=== PATIENT | female | born 1975 | race Caucasian/White ===

== ENCOUNTER 2020-01-12 04:45 | Emergency (ER) | payer OTHER ==
[2020-01-12] MEDS ORDERED: HYDROCODONE/APAP 5/325 MG TAB ONE (05:31)
--- NOTE | 2020-01-12 06:13 | ER ---
Nurse's Notes [facility] Name: Areli Morrison Age: 44 yrs Sex: Female : 1975 Arrival Date: 01/12/2020 Time: 04:48 Bed 18 Private MD: Diagnosis: Superficial injury of head;Sprain of joints and ligaments of other parts of neck Presentation: 01/11 05:01 Chief complaint: Patient states: Fell down 3 steps 1 hour ago. Denies LOC. Reports pain ss to R side of head, neck, R elbow and R knee. C collar placed in triage. Care prior to arrival: None. Mechanism of Injury: Fall down 3 steps. Trauma event details: Injury occurred in the [facility], Injury occurred: at home. Injury occurred: January 12, 2020 Injury occurred at: 04:00. 05:01 Acuity: PETER 4 ss 05:01 Method Of Arrival: Ambulatory ss 05:55 Coronavirus screen: Proceed with normal triage. Ebola Screen: No symptoms or risks lp1 identified at this time. Initial Sepsis Screen: Does the patient meet any 2 criteria? No. Patient's initial sepsis screen is negative. Does the patient have a suspected source of infection? No. Patient's initial sepsis screen is negative. Risk Assessment: Do you want to hurt yourself or someone else? Patient reports no desire to harm self or others. Onset of symptoms was January 12, 2020 at 04:00. Trauma Activation: Not Applicable Physician: ED Physician; Name: ; Notified At: ; Arrived At: Physician: General Surgeon; Name: ; Notified At: ; Arrived At: Physician: Radiology; Name: ; Notified At: ; Arrived At: Physician: Respiratory; Name: ; Notified At: ; Arrived At: Physician: Lab; Name: ; Notified At: ; Arrived At: Historical: - Allergies: 05:04 No Known Allergies; ss - Immunization history:: Adult Immunizations up to date. - Social history:: Smoking status: Patient denies any tobacco usage or history of. - Family history:: not pertinent. - Hospitalizations: : No recent hospitalization is reported. Screenin:06 Abuse screen: Denies threats or abuse. Denies injuries from another. Nutritional ss screening: No deficits noted. Tuberculosis screening: Never had TB. 05:30 Fall Risk None identified. lp1 Assessment: 05:04 General: Appears in no apparent distress. Behavior is appropriate for age. Pain: lp1 Complains of pain in forehead and back of neck Pain currently is 7 out of 10 on a pain scale. Quality of pain is described as aching. Neuro: Level of Consciousness is awake, alert, obeys commands, Oriented to person, place, time, situation. Cardiovascular: Patient's skin is warm and dry. Respiratory: Respiratory effort is even, unlabored. GI: No signs and/or symptoms were reported involving the gastrointestinal system. : No signs and/or symptoms were reported regarding the genitourinary system. EENT: No signs and/or symptoms were reported regarding the EENT system. Derm: Skin is pink, warm \T\ dry. Musculoskeletal: Swelling present in forehead. 05:30 Reassessment: Patient returned from CT; complaint of pain to head and neck. lp1 06:21 Reassessment: C-collar removed from patient; Provider at bedside discussing results; lp1 Patient aware of pending discharge, calling for ride home. 06:43 Reassessment: Patient ambulated to bathroom independently at this time. lp1 Vital Signs: 05:04 BP 148 / 70; Pulse 98; Resp 18; Temp 99.2(TE); Pulse Ox 99% on R/A; Weight 98.43 kg; ss Height 5 ft. 5 in. (165.10 cm); Pain 8/10; 05:45 BP 121 / 71; Pulse 82; Resp 18; Pulse Ox 97% on R/A; lp1 05:04 Body Mass Index 36.11 (98.43 kg, 165.10 cm) ED Course: 04:48 Patient arrived in ED. ag3 04:49 Ángel Vasquez MD is Attending Physician. rn 05:04 Triage completed. ss 05:04 Karin Breen, KASSIDY is Primary Nurse. lp1 05:04 Arm band placed on right wrist. ss 05:06 Patient has correct armband on for positive identification. Pulse ox on. NIBP on. lp1 05:29 CT Head C Spine In Process Unspecified. EDMS 05:55 No provider procedures requiring assistance completed. Patient did not have IV access lp1 during this emergency room visit. Administered Medications: 05:31 Drug: [place] 5 mg-325 mg 1 tabs Route: PO; lp1 06:22 Follow up: Response: No adverse reaction lp1 Outcome: 06:12 Discharge ordered by . rn 06:41 Discharged to home ambulatory, with significant other. lp1 06:41 Condition: good 06:41 Discharge instructions given to patient, Instructed on discharge instructions, follow up and referral plans. medication usage, Demonstrated understanding of instructions, follow-up care, medications, Prescriptions given X 1. 07:07 Patient left the ED. lp1 Signatures: Dispatcher [employer] EDMS Ángel Vasquez MD MD rn Smirch, Shelby, RN RN ss Pena, Laura, RN RN lp1 Guera Martino ag3
--- NOTE | 2020-01-12 06:13 | EDPHYS ---
Physician Documentation [facility] Name: Areli Morrison Age: 44 yrs Sex: Female : 1975 Arrival Date: 01/12/2020 Time: 04:48 Bed 18 Private MD: ED Physician Ángel Vasquez HPI: 01/11 05:33 This 44 yrs old Female presents to ER via Ambulatory with complaints of Fall rn Injury. 05:33 Details of fall: The patient fell from a height, down approximately 3 stairs. Onset: rn The symptoms/episode began/occurred just prior to arrival. Associated injuries: The patient sustained injury to the head, neck injury. Severity of symptoms: At their worst the symptoms were mild, in the emergency department the symptoms are unchanged. The patient has not experienced similar symptoms in the past. Reports walking downstairs, missed step, fell forward, hit head, no LOC, reports headache and neck pain, not on blood thinners, remembers all events. . Historical: - Allergies: 05:04 No Known Allergies; ss - Immunization history:: Adult Immunizations up to date. - Social history:: Smoking status: Patient denies any tobacco usage or history of. - Family history:: not pertinent. - Hospitalizations: : No recent hospitalization is reported. ROS: 05:33 Constitutional: Negative for fever, chills, and weight loss, Eyes: Negative for injury, rn pain, redness, and discharge, Neck: + neck pain Cardiovascular: Negative for chest pain, palpitations, and edema, Respiratory: Negative for shortness of breath, cough, wheezing, and pleuritic chest pain, Abdomen/GI: Negative for abdominal pain, nausea, vomiting, diarrhea, and constipation, Back: Negative for injury and pain, MS/Extremity: Negative for deformity, Skin: Negative for injury, rash, and discoloration, Neuro: Negative for weakness, numbness, tingling, and seizure. Exam: 05:33 Constitutional: This is a well developed, well nourished patient who is awake, alert, rn and in no acute distress. Head/Face: Normocephalic, + right forntal hematoma without underlying depression or laceration Eyes: Pupils equal round and reactive to light, extra-ocular motions intact. Lids and lashes normal. Conjunctiva and sclera are non-icteric and not injected. Cornea within normal limits. Periorbital areas with no swelling, redness, or edema. Neck: No crepitus, + lower cervical area tenderness Chest/axilla: Normal chest wall appearance and motion. Nontender with no deformity. No lesions are appreciated. Cardiovascular: Regular rate and rhythm. No pulse deficits. Respiratory: No increased work of breathing, no retractions or nasal flaring. Abdomen/GI: soft, non-tender Back: No spinal tenderness. No costovertebral tenderness. Full range of motion. Skin: Warm, dry MS/ Extremity: Pulses equal, no cyanosis. Neurovascular intact. Full, normal range of motion. Equal circumference. Neuro: Awake and alert, GCS 15, oriented to person, place, time, and situation. Motor strength 5/5 in all extremities. Sensory grossly intact. Cerebellar exam normal. Vital Signs: 05:04 BP 148 / 70; Pulse 98; Resp 18; Temp 99.2(TE); Pulse Ox 99% on R/A; Weight 98.43 kg; ss Height 5 ft. 5 in. (165.10 cm); Pain 8/10; 05:45 BP 121 / 71; Pulse 82; Resp 18; Pulse Ox 97% on R/A; lp1 05:04 Body Mass Index 36.11 (98.43 kg, 165.10 cm) ss MDM: 04:49 Patient medically screened. rn 06:10 Differential diagnosis: closed head injury, contusion, fracture, sprain, strain. Data rn reviewed: vital signs, nurses notes, radiologic studies, CT scan, and as a result, I will discharge patient. Counseling: I had a detailed discussion with the patient and/or guardian regarding: the historical points, exam findings, and any diagnostic results supporting the discharge/admit diagnosis, radiology results, the need for outpatient follow up, to return to the emergency department if symptoms worsen or persist or if there are any questions or concerns that arise at home. Special discussion: Based on the patient's history, exam and DX evaluation, there is no indication for emergent intervention or inpatient TX. It is understood by the patient/guardian that if the SXs persist or worsen they need to return immediately for re-evaluation. I discussed with the patient/guardian in detail that at this point there is no indication for admission to the hospital. It is understood, however, that if the symptoms persist or worsen the patient needs to return immediately for re-evaluation. 06:10 ED course: CT head and cspine neg. . sohail 01/11 04:56 Order name: CT Head C Spine rn Administered Medications: 05:31 Drug: [place] 5 mg-325 mg 1 tabs Route: PO; lp1 06:22 Follow up: Response: No adverse reaction lp1 Disposition: 01/12/20 06:12 Discharged to Home. Impression: Superficial injury of head, Sprain of joints and ligaments of other parts of neck. - Condition is Stable. - Discharge Instructions: Head Injury, Adult, Hematoma, Cervical Sprain. - Prescriptions for Cyclobenzaprine 10 mg Oral Tablet - take 1 tablet by ORAL route every 8 hours As needed; 20 tablet. - Medication Reconciliation Form, Thank You Letter, Antibiotic Education, Prescription Opioid Use form. - Follow up: Private Physician; When: As needed; Reason: Recheck today's complaints, Re-evaluation by your physician. - Problem is new. - Symptoms have improved. Signatures: Dispatcher [employer] EDMS Ángel Vasquez MD MD rn Smirch, Shelby, RN RN Karin Breen RN RN lp1 Corrections: (The following items were deleted from the chart) 07:07 06:12 01/12/2020 06:12 Discharged to Home. Impression: Superficial injury of head; lp1 Sprain of joints and ligaments of other parts of neck. Condition is Stable. Forms are Medication Reconciliation Form, Thank You Letter, Antibiotic Education, Prescription Opioid Use. Follow up: Private Physician; When: As needed; Reason: Recheck today's complaints, Re-evaluation by your physician. Problem is new. Symptoms have improved. rn
[2020-01-12 07:25] VITALS: TEMP 99.2
[2020-01-12 08:16] VITALS: BP 121/71; O2SAT 97
--- NOTE | 2020-01-12 12:56 | RAD REPORT ---
EXAM DESCRIPTION: CT Head and Cervical Spine Without Intravenous Contrast CLINICAL HISTORY: The patient is 44 years old and is Female; fall, 3 steps, frontal hematoma, neck p ain TECHNIQUE: Axial computed tomography images of the head/brain and cervical spine without intravenous contrast. Sagittal and coronal reformatted images were created and reviewed. This CT exam was pe rformed using one or more of the following dose reduction techniques: automated exposure control, a djustment of the mA and/or kV according to patient size, and/or use of iterative reconstruction techn ique. COMPARISON: No relevant prior studies available. FINDINGS: BRAIN: Unremarkable. No hemorrhage. No significant white matter disease. No edema. VENTRICLES: Unremarkable. No ventriculomegaly. SKULL: No acute fracture. SINUSES: Right maxillary sinus mucus retention cyst is noted. MASTOID AIR CELLS: Unremarkable as visualized. No mastoid effusion. VERTEBRAE: The vertebral body heights and alignment are maintained. No acute fracture. DISCS/SPINAL CANAL/NEURAL FORAMINA: The intervertebral disc spaces are maintained. No spinal can al stenosis. SOFT TISSUES: Right frontal scalp soft tissue swelling is present. LUNG APICES: Unremarkable as visualized. IMPRESSION: 1. No acute intracranial findings. Right frontal scalp soft tissue swelling. 2. No fracture or malalignment of the cervical spine. Electronically signed by: Casi Diego MD 01/12/2020 6:05 AM CDT Due to temporary technical issues with the PACS/Fluency reporting system, reports are being signed by the in house radiologist without review as a courtesy to ensure prompt reporting. The interpreting r adiologist is fully responsible for the content of the report.
== END 2020-01-12 07:07 | disposition home or self-care (01) ==
LOC: ER 04:45
DX: S00.90XA Unspecified superficial injury of unspecified part of head, initial encounter (principal); S13.8XXA Sprain of joints and ligaments of other parts of neck, initial encounter; W10.9XXA Fall (on) (from) unspecified stairs and steps, initial encounter; Y93.01 Activity, walking, marching and hiking; Y92.9 Unspecified place or not applicable
CPT/HCPCS: 70450; 72125; 99284